=== PATIENT | female | born 2005 | race Caucasian/White ===

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

== ENCOUNTER → 2024-07-22 | Outpatient (REF) | payer OTHER, MEDICAID ==
[2024-07-22 12:41] LABS: BASO % 0.4 % (0.0-1.0); EOS # 0.1 10^3/uL (0.0-0.5); HEMATOCRIT 44.6 % (36.0-47.0); HEMOGLOBIN 15.6 g/dl (12.0-15.5); LYMPH # 2.5 10^3/uL (1.5-5.0); LYMPH % 36.5 % (24.0-44.0); MEAN CORPUSCULAR HEMOGLOBIN 29.8 pg (27.0-33.0); MEAN CORPUSCULAR VOLUME 85.1 fl (80.0-96.0); MONO # 0.5 10^3/uL (0.0-0.8); MONO % 7.8 % (2.0-8.0); NEUTROPHILS # 3.7 10^3/uL (1.5-8.5); PLATELET COUNT, AUTOMATED 277 10^3/uL (150-450); RED BLOOD COUNT 5.24 10^6/uL (4.00-5.40); WHITE BLOOD COUNT 6.9 10^3/uL (4.0-10.0)
[2024-07-22 13:12] LABS: BLOOD UREA NITROGEN 15 MG/DL (9-23); CALCIUM LEVEL 9.1 MG/DL (8.5-10.1); CARBON DIOXIDE LEVEL 25 MMOL/L (20-31); CHLORIDE LEVEL 107 MMOL/L (98-107); CHOLESTEROL LEVEL 161 MG/DL (<200); CREATININE FOR GFR 0.62 MG/DL (0.55-1.30); GLUCOSE, FASTING 92 MG/DL (60-100); HDL CHOLESTEROL 45.9 MG/DL (>40); IRON (FE) 60 UG/DL (50-170); LDL CHOLESTEROL 99.3 MG/DL (<100); NON-HDL-C 115.1 MG/DL; SODIUM LEVEL 140 MMOL/L (136-145); TOTAL IRON BINDING CAPACITY 334 UG/DL (250-425); TRIGLYCERIDES LEVEL 79 MG/DL (<150)
[2024-07-22 13:14] LABS: THYROID STIMULATING HORMONE 2.469 uIU/ML (0.48-4.17); TOTAL 25(OH) VITAMIN D 19.8 NG/ML (20.0-100.0)
== END ==
LOC: M LAB REF 12:23
PROVIDERS: ATTEND Nurse Practitioner Family
DX: R53.83 Other fatigue (principal); F43.23 Adjustment disorder with mixed anxiety and depressed mood; E66.9 Obesity, unspecified; G47.00 Insomnia, unspecified

== ENCOUNTER → 2024-11-05 | Outpatient (REF) | payer OTHER, MEDICAID | LOC: M LAB REF 13:10 | PROVIDERS: ATTEND Nurse Practitioner Family | DX: J06.9 Acute upper respiratory infection, unspecified (principal) ==

== ENCOUNTER 2025-06-25 20:59 | Emergency (ER) | payer OTHER ==
[~2025-06-25] VITALS: Ht 172.7 cm; Wt 92.4 kg
[2025-06-26] MEDS: KETOROLAC 30 MG/ML 1 ML VIAL IV ONE (03:59)
[2025-06-26] MEDS: ACETAMINOPHEN *IV* 1,000 MG in IV 1 EA IV ONE (03:59)
[2025-06-26] MEDS: dexAMETHasone 4 MG/ML 1 ML VIAL IV ONE (03:59)
[2025-06-26] MEDS: NS (Normal Saline) 0.9% 1,000 ML IV ONE (03:59)
[2025-06-26] MEDS: MAG SULF 1GM/100ML (MAG RUN) 1 GM in IV 1 EA IV ONE (03:59)
[2025-06-26 05:30] VITALS: BP 109/53; TEMP 97.5; O2SAT 99
== END 2025-06-26 05:40 | disposition home or self-care (01) ==
LOC: M ED 20:59
DX: S06.300A Unspecified focal traumatic brain injury without loss of consciousness, initial encounter (principal); R51.9 Headache, unspecified; W22.8XXA Striking against or struck by other objects, initial encounter; Z79.1 Long term (current) use of non-steroidal anti-inflammatories (NSAID); Z79.899 Other long term (current) drug therapy; Y92.89 Other specified places as the place of occurrence of the external cause; Y93.89 Activity, other specified; Y99.0 Civilian activity done for income or pay
CPT/HCPCS: 70450; 72125; 96365; 96366; 96367; 96375; 99284; J0134; J1100; J1885; J2765; J3475